=== PATIENT | male | born 1935 ===

== ENCOUNTER 2021-10-10 11:29 | Day surgery (SDC) | payer MEDICARE ==
[2021-10-10] VITALS (9 sets, daily range): BP systolic 98–196; BP diastolic 47–78; PULSE 59–67; TEMP 97.6–98.7
[~2021-10-10] VITALS: Ht 188 cm; Wt 83.4 kg
[2021-10-10] MEDS ORDERED: MULTI VITAMINS1 TAB PO (15:09)
[2021-10-10] MEDS ORDERED: TYLENOL 500MG500 MG PO ×2 (15:10→15:18)
[2021-10-10] MEDS ORDERED: MIRAPEX0.5 MG PO ×2 (15:11→15:20)
[2021-10-10] MEDS ORDERED: CLARITIN 1010 MG/TAB PO (15:11)
[2021-10-10] MEDS ORDERED: FLORINEF ACETA0.1 MG PO (15:13)
[2021-10-10] MEDS ORDERED: PRILOSEC 20MG20 MG PO (15:14)
[2021-10-10] MEDS ORDERED: PROAMATINE 5MG T5 MG PO (15:18)
[2021-10-10] MEDS ORDERED: ARICEPT 5MG PO (15:19)
[2021-10-10] MEDS ORDERED: SEROQUEL 1100 MG/TAB PO (15:21)
--- NOTE | 2021-10-10 18:40 | NUR ---
Pt recently arrived to the floor from [facility]. He is alert and oriented with no pain complaints. CBI running at slow rate, output is light pink and clear. Educated pt to notify nursing if he ever has the urge to void. Oriented pt and family to the room and educated on room service and his diet. Did give pt some ice water, jello and pudding on admission. Pt tolerating with no complaints of N/V, general diet entered and dinner ordered. SCDs on bilaterally. No other needs, will continue to monitor
--- NOTE | 2021-10-10 19:28 | NUR ---
RECEIVED CHANGE OF SHIFT REPORT FROM DAY SHIFT RN.
[2021-10-11 00:22] VITALS: BP 137/62; PULSE 68; TEMP 98.1
[2021-10-11 04:51] VITALS: BP 119/66; PULSE 55; TEMP 98.1
--- NOTE | 2021-10-11 07:44 | NUR ---
CHANGE OF SHIFT REPORT GIVEN TO DAY SHIFT RNJOHN PAUL.
[2021-10-11 08:23] VITALS: BP 95/57; PULSE 60; TEMP 98.6
--- NOTE | 2021-10-11 08:30 | NUR ---
Pt doing good this morning. He has been sitting up in the chair since shift change with no complaints. He has tolerated breakfast. CBI running at slow rate with output being clear.
[2021-10-11 11:34] VITALS: BP 113/65; PULSE 80; TEMP 97.6
--- NOTE | 2021-10-11 11:52 | NUR ---
Dr Hansen in recently to see pt. Orders received to remove phillips. Prime and pulled phillips catheter. Educated pt that he will need to use the urinal to void and to notify nursing each time he goes. Pts daughter is present in the room for education as well. Pt did have some complaints of discomfort when phillips was in, but reports he feels better now that the catheter is out. Call light within reach and pt remains sitting up in the chair
--- NOTE | 2021-10-11 13:27 | NUR ---
Senior Project Manager prayed and offered support with patient while family was in room.
--- NOTE | 2021-10-11 14:41 | NUR ---
Pt continues to sit up in the chair, has not voided yet, states he does not have the urge. Instilled approximately 150ml during prime and pull and pt has drank 1000ml of water. Will take pt for walk and assist to bathroom to see if he can void. Bladder scanned 230ml
--- NOTE | 2021-10-11 16:00 | NUR ---
PT still unable to void, bladder scan 310. Notified Dr Hansen, new orders received to wait until [address] phillips if unable to void
[2021-10-11 16:40] VITALS: BP 156/79; PULSE 61; TEMP 98.5
--- NOTE | 2021-10-11 16:59 | NUR ---
Pt was able to void. Had the urge but was not able to make it in to the urinal. Pt had incontinent void in the bed. Pt cleaned and linens changed.
--- NOTE | 2021-10-11 18:15 | NUR ---
Pt has voided 2 more times since the incontinent void and he was able to use the urinal. Output is dark, but no clots seen.
[2021-10-11 19:51] VITALS: BP 153/92; PULSE 67; TEMP 97.5
[2021-10-12 00:25] VITALS: BP 142/75; PULSE 70; TEMP 97.8
[2021-10-12 04:26] VITALS: BP 166/82; PULSE 56; TEMP 97.6
[2021-10-12 07:05] VITALS: BP 139/83; PULSE 59; TEMP 97.7
--- NOTE | 2021-10-12 10:50 | NUR ---
Pt doing well and is ready for discharge. Reviewed discharge instructions with him and his daughter, all questions answered. Sent them with a urinal as they have a longer drive. INT removed from left forearm. Pt getting dressed and educated to notify nursing when he is ready to be escorted out
--- NOTE | 2021-10-12 11:12 | NUR ---
Pt escorted out at this time
== END 2021-10-12 11:14 | disposition home or self-care (01) ==
LOC: SDCO 11:29 → SURG 17:53 → SDCO 10-12 11:14
DX: N40.1 Benign prostatic hyperplasia with lower urinary tract symptoms (principal); R33.9 Retention of urine, unspecified; R39.12 Poor urinary stream; R35.1 Nocturia; R39.14 Feeling of incomplete bladder emptying; Z87.891 Personal history of nicotine dependence
CPT/HCPCS: OP; J0360; J0690; J2704; J3010; J7120